=== PATIENT | female | born 1960 | race Caucasian/White ===

== ENCOUNTER 2021-12-06 13:13 | Emergency (ER) | payer BC ==
[2021-12-06 13:56] LABS: ANION GAP 10.4 mmol/L (5-15)
== END 2021-12-06 15:55 | disposition home or self-care (01) ==
LOC: KA.ED 13:13
DX: R42 Dizziness and giddiness (principal); Z79.899 Other long term (current) drug therapy
CPT/HCPCS: 36415; 80053; 81003; 84484; 85025; 99284; 99284-25